=== PATIENT | female | born 1990 | race Caucasian/White ===

== ENCOUNTER → 2017-10-15 | Outpatient (REF) | payer OTHER ==
[2014-07-07 14:31] VITALS: BMI 27.4
[~2017-10-15] MED LIST: ACET-1718 PO; ANTIBIOTIC; BUSP15TA69 PO; CEPH250C37 PO; CEPH500T7 PO; CLOB15OI16 TP; CYCL10TA29 PO; DICL-190 PO; DICL-195 PO; ESCI20TA38 PO; ETON1VAG7 VG; FAMO20TA28 PO; FERR-53 PO; HYDR-4225 PO; HYDR-4309 PO; IBUP800T37 PO; IUD ASDIRECTED; LOR5/325 PO; MONT10TA PO; NO ROUTINE MEDS; ONDA4TAB PO; ONDA8TAB94 PO; OXYC-865 PO; PNV1TABL77 PO; PRED-420 PO; PROM12.556 PO; PROM25SU9 RC; TRA50 PO; VENL75TA12 FT; [UNRECOGNIZED DRUG - MIXTURE]
[2017-10-15 20:12] LABS: PLATELET COUNT, AUTOMATED 231 K/uL (150-450)
== END ==
PROVIDERS: ATTEND Nurse Practitioner Family
DX: R00.2 Palpitations (principal)
CPT/HCPCS: 82040; 82247; 82310; 82374; 82435; 82565; 82947; 84075; 84132; 84155; 84295; 84439; 84443; 84450; 84460; 84520; 85025

== ENCOUNTER → 2017-10-16 | Outpatient (CLI) | payer OTHER, MEDICAID ==
[2014-07-07 14:31] VITALS: BMI 27.4
--- NOTE | 2017-10-21 10:23 | RT HOLTER TEST ---
FACILITY: [facility] - [place] PATIENT NAME: NOLBERTO EDMONDSON : [id number] MR: [id number] V: [id number] EXAM DATE: ORDERING PHYSICIAN: SEVERO KUMAR TECHNOLOGIST: Hook-up date: 2017-10-16 13:33:00 Duration: 47:59:00 Test Indications: HEART RACING Medications: [id number] QRS complexes 15 Ventricular ectopics which represent <1 % of total QRS comp. 4 Supraventricular ectopics which represent <1 % of total QRS comp. * Paced QRS complexes which represent % of total QRS comp. VENTRICULAR ECTOPY 15 Isolated 0 Bigeminal Cycles 0 Couplets 0 Runs 0 Beats in Runs * Beats LONGEST at * BPM at :: -- * Beats FASTEST at * BPM at :: -- SUPRAVENTRICULAR ECTOPY 4 Isolated 0 Couplets 0 Runs 0 Beats in Runs * Beats LONGEST at * BPM at :: -- * Beats FASTEST at * BPM at :: -- HEART RATES 52 MIN at 06:55:20 2017-10-18 89 AVG 163 MAX at 19:13:26 2017-10-16 LONGEST RR 1.344 secs at 06:55:15 2017-10-18 S-T LEVELS Channel 1 -12.800 mm MIN at 13:33:00 2017-10-16 -12.800 mm MAX at 13:33:00 2017-10-16 Channel 2 -12.800 mm MIN at 13:33:00 2017-10-16 -12.800 mm MAX at 13:33:00 2017-10-16 Channel 3 -12.800 mm MIN at 13:33:00 2017-10-1612.800 mm MAX at 13:33:00 2017-10-16 Very rare ventricular ectopy. No coupets, triplets, or runs. It appears there may be a competing ectopic atrial focus as P wave morphology changes periodically (f or extended time frames) throughout the recording. Sinus tachycardia was noted during usual waking hours and sinus bradycardia during usual sleeping christina rs. No pauses (>2 seconds) were recorded. Confirmed by CINDY GORDON ([id number]) on 10/21/2017 10:22:31 AM Referred By: Overread By: CINDY GORDON
== END ==
LOC: RESP 13:11
PROVIDERS: ATTEND Nurse Practitioner Family
DX: R00.2 Palpitations (principal)
CPT/HCPCS: 93225; 93226

== ENCOUNTER → 2018-03-14 | Outpatient (CLI) | payer OTHER, MEDICAID ==
[2014-07-07 14:31] VITALS: BMI 27.4
[~2018-03-14] MED LIST changes: -HYDR-4309 PO; +HYDR-653 PO
--- NOTE | 2018-03-14 17:58 | RADIOLOGY IMAGING REPORT ---
FACILITY: [facility] PATIENT NAME: Mag Olivier : 1990 MR: [id number] V: [id number] EXAM DATE: ORDERING PHYSICIAN: MICHAEL KELLY TECHNOLOGIST: Location: [facility] Patient: Mag Olivier : 1990 Visit/Account:[id number] Date of Sevice: 03/14/2018 KUB SINGLE VIEW ABDOMEN HISTORY: hematuria KUB. FINDINGS: Nonspecific bowel gas pattern. No abdominal mass lesion. No abnormal calcifications. Bony structur es are unremarkable. IMPRESSION: 1. Unremarkable KUB Report Dictated By: David Mercer MD at 03/14/2018 5:53 PM Report E-Signed By: David Mercer MD at 03/14/2018 5:54 PM WSN:[id number]
== END ==
LOC: RAD 16:37
PROVIDERS: ATTEND Urology
DX: R39.9 Unspecified symptoms and signs involving the genitourinary system (principal)
CPT/HCPCS: 87088

== ENCOUNTER → 2018-03-14 | Outpatient (CLI) | payer OTHER, MEDICAID ==
[2014-07-07 14:31] VITALS: BMI 27.4
== END ==
LOC: LAB 16:29
PROVIDERS: ATTEND Urology
DX: R39.9 Unspecified symptoms and signs involving the genitourinary system (principal)
CPT/HCPCS: 74018

== ENCOUNTER → 2018-03-31 | Outpatient (CLI) | payer OTHER, MEDICAID ==
[2014-07-07 14:31] VITALS: BMI 27.4
--- NOTE | 2018-03-31 17:00 | RADIOLOGY IMAGING REPORT ---
FACILITY: [facility] - [place] PATIENT NAME: Mag Olivier : 1990 MR: [id number] V: [id number] EXAM DATE: ORDERING PHYSICIAN: MICHAEL KELLY TECHNOLOGIST: Location: [facility] Patient: Mag Olivier : 1990 Visit/Account:[id number] Date of Sevice: 03/31/2018 KIDNEYS, KIDNEYS HISTORY: hematuria COMPARISON: None. FINDINGS: Kidneys: Right kidney- 9.8 x 4.3 x 5.0 cm with normal parenchymal thickness and echogenicity. No ultrasound e vident renal mass lesion or stone. Left kidney- 10.4 x 5.3 x 5.6 cm with normal parenchymal thickness and echogenicity. No ultrasound e vident renal mass lesion or stone. Uniform and symmetric blood flow in each kidney by Doppler ultrasound. Hydronephrosis: None. Bladder: Morphologically unremarkable. Bilateral ureteric jets visualized. There is a small post vo id residual of 25 mL. Abdominal aorta and IVC: Patent by Doppler ultrasound. IMPRESSION: Small post void residual of 25 mL otherwise normal renal ultrasound Report Dictated By: Esteban Valadez at 03/31/2018 4:55 PM Report E-Signed By: Esteban Valadez at 03/31/2018 4:56 PM WSN:[email or web address]
--- NOTE | 2018-03-31 17:01 | RADIOLOGY IMAGING REPORT ---
[place] [facility] [place]: Mag Oilvier : 1990 MR: [id number] V: [id number] EXAM DATE: ORDERING PHYSICIAN: MICHAEL KELLY TECHNOLOGIST: Location: [facility] [place] Patient: Mag Olivier : 1990 Visit/Account:[id number] Date of Sevice: 03/31/2018 KIDNEYS, KIDNEYS HISTORY: hematuria COMPARISON: None. FINDINGS: Kidneys: Right kidney- 9.8 x 4.3 x 5.0 cm with normal parenchymal thickness and echogenicity. No ultrasound e vident renal mass lesion or stone. Left kidney- 10.4 x 5.3 x 5.6 cm with normal parenchymal thickness and echogenicity. No ultrasound e vident renal mass lesion or stone. Uniform and symmetric blood flow in each kidney by Doppler ultrasound. Hydronephrosis: None. Bladder: Morphologically unremarkable. Bilateral ureteric jets visualized. There is a small post vo id residual of 25 mL. Abdominal aorta and IVC: Patent by Doppler ultrasound. IMPRESSION: Small post void residual of 25 mL otherwise normal renal ultrasound Report Dictated By: Esteban Valadez at 03/31/2018 4:55 PM Report E-Signed By: Esteban Valadez at 03/31/2018 4:56 PM WSN:[email or web address]
== END ==
LOC: US 02:24
PROVIDERS: ATTEND Urology
DX: R31.9 Hematuria, unspecified (principal); R39.9 Unspecified symptoms and signs involving the genitourinary system
CPT/HCPCS: 76705

== ENCOUNTER → 2018-09-11 | Outpatient (CLI) | payer OTHER, MEDICAID ==
[2014-07-07 14:31] VITALS: BMI 27.4
[~2018-09-11] MED LIST changes: +CETI10CA8 PO; +CHOL10005 PO; +MELA10TA3; +MIRA50TA PO; +OMEP40CA48 PO; +OXCA300T59 PO; +VITA-175 PO
== END ==
LOC: RESP 01:31
PROVIDERS: ATTEND Otolaryngology
DX: G47.33 Obstructive sleep apnea (adult) (pediatric) (principal)

== ENCOUNTER 2018-12-18 05:26 | Emergency (ER) | payer MEDICAID, OTHER ==
[2014-07-07 14:31] VITALS: Wt 75.3 kg
[~2018-12-18 05:26] MED LIST changes: +FLUO-202 PO; -PROM12.556 PO; +PROM12.557 PO
[2018-12-18 05:29] VITALS: BP 112/74
--- NOTE | 2018-12-18 05:32 | ER Report ---
History and Physical Time Seen By MD: 05:26 HPI/ROS CHIEF COMPLAINT: Right Foot pain HISTORY OF PRESENT ILLNESS: 27-year-old female with essentially 2 days of left foot pain. She recalls no specific traumatic injury. She describes deep boring pain, throbbing in nature, 8/10 in the arch of her foot on the lateral aspect. She works as a [employer]. She spends a lot of time on her feet. She describes wearing no new shoes or footwear. She took ibuprofen 400 mg without improvement. Allergies: Coded Allergies: Penicillins (Verified Allergy, Mild, 07/08/16) bupropion (Verified Allergy, Mild, RASH, 11/22/16) escitalopram (Verified Allergy, Mild, RASH, 11/22/16) Uncoded Allergies: SEAFOOD (Allergy, Mild, 02/25/10) Home Meds Active Scripts Ondansetron Hcl (ZOFRAN) 4 Mg Tablet, 4 MG PO Q6H PRN for NAUSEA/VOMITING, #10 Prov:VICTORIANO SWAN DO 12/18/18 Hydrocodone Bit/Acetaminophen (HYDROCODON-ACETAMINOPHEN 5-325) 1 Each Tablet, 1 EACH PO Q4-6H PRN for PAIN, #10 TAKE ONE TABLET BY MOUTH EVERY 4-6 HOURS NEEDED FOR PAIN Prov:VICTORIANO SWAN DO 12/18/18 Mirabegron (MYRBETRIQ) 50 Mg Tab.er.24h, 50 MG PO DAILY for 90 Days, #90 CAP 1 Refill Prov:MICHAEL KELLY MD 07/08/18 Reported Medications Ranitidine Hcl (ZANTAC) 150 Mg Tablet, 300 MG PO QDAY, TAB 12/18/18 Fluoxetine Hcl (PROZAC) Unknown Strength Capsule, PO QDAY, CAPSULE 10/03/18 Melatonin (Melatonin) 10 Mg Tablet.er 07/10/18 Cholecalciferol (Vitamin D3) (VITAMIN D3) 1,000 Unit Tablet, 1000 UNIT PO, TAB 07/10/18 Montelukast Sodium (SINGULAIR) 10 Mg Tablet, 1 TAB PO QDAY, TAB 07/10/18 Oxcarbazepine (OXCARBAZEPINE) 300 Mg Tablet, 300 MG PO BID 07/10/18 Cetirizine Hcl (ZYRTEC) 10 Mg Capsule, 10 MG PO QDAY, CAPSULE 07/10/18 Omeprazole (OMEPRAZOLE) 40 Mg Capsule.dr, 40 MG PO BID, CAP 07/10/18 Discontinued Reported Medications Vitamin B Complex (B COMPLEX) 1 Each Tablet, 1 EACH PO 07/10/18 [Iud] No Conflict Check, 1 UNIT ASDIRECTED 02/28/15 Reviewed Nurses Notes: Yes Old Medical Records Reviewed: Yes Hx Smoking: No Smoking Status: Current: Some Days Smoker Exposure to Second Hand Smoke?: Yes Hx Substance Use Disorder: Yes (occ) Hx Alcohol Use: No Constitutional Vital Sign - Last 24 Hours 12/18/18 05:29 Temp 98.5 Pulse 72 Resp 16 B/P (MAP) 112/74 Pulse Ox 94 O2 Delivery Room Air Physical Exam Vital signs stable, afebrile, pulse ox normal General appearance: Alert no distress. Respiratory: Chest is non tender, lungs are clear to auscultation. Cardiac: Regular rate and rhythm Extremities: Right lower extremity neurovascularly intact, there is no erythema, warmth or tenderness on palpation. There is good range of motion. DIFFERENTIAL DIAGNOSIS: After history and physical exam differential diagnosis was considered for sprain, strain, fracture, dislocation, contusion Medical Decision Making EKG/Imaging Imaging X-ray: Right foot, 3 views was obtained. I viewed the images myself on the PACS system. My interpretation of the images is: No fracture no dislocation, no degenerative joint changes. The radiologist interpretation had no clinically si gnificant variation from this interpretation. ED Course/Re-evaluation ED Course Patient was minute to an examination room. H&P was done. The differential diagnoses was considered. Patient was medicated with Lortab and Motrin 600 mg. Diagnostic x-ray was performed of her right foot. Was unremarkable. Patient developed nausea with the Lortab. She was treated with Zofran 4 mg sublingual. Patient's discharged home with a limited supply of Lortab advised to continue ibuprofen 600 mg 3 times daily. I think she has a case of plantar fasciitis. She is advised to follow-up with primary care if unimproved in 3-5 days for further evaluation. Decision to Disposition Date: Dec 18, 2018 Decision to Disposition Time: 05:58 Depart Departure Latest Vital Signs Vital Signs Date Time Temp Pulse Resp B/P (MAP) Pulse Ox O2 Delivery O2 Flow Rate FiO2 12/18/18 05:29 98.5 72 16 112/74 94 Room Air Impression: Primary Impression: Right foot pain Condition: Improved Disposition: HOME OR SELF-CARE New Scripts Ondansetron Hcl (ZOFRAN) 4 Mg Tablet 4 MG PO Q6H PRN for NAUSEA/VOMITING, #10 Prov: VICTORIANO SWAN DO 12/18/18 Hydrocodone Bit/Acetaminophen (HYDROCODON-ACETAMINOPHEN 5-325) 1 Each Tablet 1 EACH PO Q4-6H PRN for PAIN, #10 TAKE ONE TABLET BY MOUTH EVERY 4-6 HOURS NEEDED FOR PAIN Prov: VICTORIANO SWAN DO 12/18/18 Patient Instructions: Plantar Fasciitis (ED) Additional Instructions: Take ibuprofen 200 mg 3 tablets 3 times a day with food Rest your foot avoid any activity that causes pain or increased pain afterwards Follow-up with your primary care doctor if unimproved in 3-5 days VICTORIANO SWAN DO Dec 18, 2018 05:32
[2018-12-18] MEDS ORDERED: RANI-54 PO (05:37)
[2018-12-18] MEDS ORDERED: APAP/HYDROCODONE 325/5 TAB PO ONE (05:45)
[2018-12-18] MEDS ORDERED: IBUPROFEN 600 MG TAB PO ONE (05:45)
[2018-12-18] MEDS ORDERED: LOR5/325 PO (06:20)
[2018-12-18] MEDS ORDERED: ONDA4TAB97 PO (06:24)
[2018-12-18] MEDS ORDERED: ONDANSETRON 4 MG ODT TABDP SL ONE (06:25)
--- NOTE | 2018-12-18 06:32 | RADIOLOGY IMAGING REPORT ---
FACILITY: [facility] PATIENT NAME: Mag Olivier : 1990 MR: [id number] V: [id number] EXAM DATE: ORDERING PHYSICIAN: VICTORIANO SWAN TECHNOLOGIST: Location: [facility] [place] Patient: Mag Olivier : 1990 Visit/Account:[id number] Date of Sevice: 12/18/2018 FOOT 3 VIEWS RIGHT HISTORY: severe arch pain 1 days three-view examination of the right foot. FINDINGS: No acute osseous pathology. Joint spaces well-maintained. Soft tissues unremarkable. IMPRESSION: 1. Negative right foot Report Dictated By: David Mercer MD at 12/18/2018 6:24 AM Report E-Signed By: David Mercer MD at 12/18/2018 6:24 AM WSN:[id number]
== END 2018-12-18 06:30 | disposition home or self-care (01) ==
LOC: ER 05:40
DX: M79.671 Pain in right foot (principal)
CPT/HCPCS: 73630; 99283; S0119